=== PATIENT | male | born 1980 | race Hispanic/Latino ===

== ENCOUNTER 2016-11-15 20:13 | Emergency (ER) | payer OTHER ==
[~2016-11-15] VITALS: Ht 162.6 cm; Wt 95.5 kg
[2016-11-15 20:29] VITALS: BP 152/105; PULSE 110; RESP 18; O2SAT 100
[2016-11-15 21:04] LABS: APPEARANCE,URINE CLEAR (CLEAR,HAZY); COLOR,URINE STRAW (YELLOW); PH,URINE 5.5 (5.0-8.0)
[2016-11-15 21:05] LABS: OCCULT BLOOD,URINE TRACE (NEGATIVE); UROBILINOGEN,URINE NORMAL (NORMAL)
[2016-11-15 21:17] LABS: BASOPHILS % (AUTO) 0.2 % (0-3); EOSINOPHILS % (AUTO) 3.2 % (0-5); MONOCYTES % (AUTO) 7.6 % (4-12); Mean Corpuscular Hemoglobin 28.7 pg (27.0-35.0); Mean Corpuscular Volume 84.7 fL (81-100); NEUTROPHILS % (AUTO) 51.7 % (40-74); Platelet Count 270 bil/L (150-400)
[2016-11-15 21:31] LABS: Magnesium 2.3 mg/dL (1.6-2.6)
--- NOTE | 2016-11-15 22:23 | ED.REPORT ---
HPI-General Illness Date of Service Nov 15, 2016 ED Provider: Arnaud Bah MD The patient is a 36 year old male presenting to the ED complaining of fatigue onset 3 days ago. Associated symptoms include nausea, dysuria, non-productive cough, lightheadedness, and shortness of breath. Denied symptoms include vomiting, diarrhea, or chills. He claims that he had been to the clinic twice and got his blood drawn, but the results were normal. He denies giving a urine sample at the clinic. Nursing Notes Stated Complaint: FEEL SICK Chief Complaint: General Complaint Nursing Notes Reviewed: Yes Allergies: Coded Allergies: No Known Allergies (Unverified , 11/15/16) General Time Seen by MD: 22:13 Chief Complaint Not feeling well Hx Obtained From: Patient Arrived By: Walk-in Sudden in Onset?: Yes Onset Occurred: 3 days ago Symptom Duration: Since onset Recent Healthcare: No recent hospitalization, Recent doctor visit Similar Sx Previous: Yes Past Medical History Past Medical History None reported Past Surgical History None reported Smoking History Unknown if Ever Smoker Social History Alcohol Use: "Social" Drug Use: Denies drug use Other Social History: Good social support, Ambulatory Status Independent Review of Systems Full Review of Systems Respiratory: Reports: Non-productive cough, Shortness of breath GI: Reports: Nausea, Denies: Vomiting Male: Reports Dysuria Neurologic: Reports: Lightheaded Complete sys rev & neg: except as marked. Physical Exam Vital Signs Vital Signs Date Time Temp Pulse Resp B/P Pulse Ox O2 Delivery O2 Flow Rate FiO2 11/15/16 20:29 37.3 110 18 152/105 100 Room Air Initial VS: Reviewed, Vital signs abnormal General/Constitutional: Well-developed, Well-nourished Head / Eyes: Atraumatic, Normocephalic Neck: Supple, Non-tender, Full range of motion Respiratory: Breath sounds normal, No respiratory distress Cardiovascular: Regular rate & rhythm, Heart sounds normal Abdomen / GI: Soft, Non-tender Back: No CVA tenderness Lymphatic: No lymphadenopathy Extremities: Vascular intact, Neuro intact Neurologic: Alert, Oriented Psychiatric: Mood/affect normal, Behavior normal ENT: Atraumatic, Mucous membranes moist, Tympanic membs NL Abdomen: Atraumatic, Soft Tenderness/Guarding/Rebound: Positive: Tender suprapubic Skin: Atraumatic, No rash, Warm, Dry Healing abrasion on right forearm Interpretation & Diagnostics Lab Results Interpretation Result Diagram: 11/15/16210111/15/16 210 Test 11/15/16 20:45 11/15/16 21:02 Urine Color Straw (YELLOW) Urine Appearance Clear (CLEAR,HAZY) Urine pH 5.5 (5.0-8.0) Urine Specific [place] 1.005 (1.003-1.035) Urine Protein Negativemg/dL (NEG,TRACE) Urine Glucose (UA) Negativemg/dL (NEGATIVE) Urine Ketones Negativemg/dL (NEGATIVE) Urine Occult Blood Trace (NEGATIVE) Urine Nitrite Negative (NEGATIVE) Urine Bilirubin Negative (NEGATIVE) Urine Urobilinogen Normalmg/dL (NORMAL) Urine Leukocyte Esterase Negative (NEGATIVE) Urine RBC 0-2/hpf (0-2) Urine WBC 0-5/hpf (0-5) Urine Epithelial Cells None/hpf (NONE-MOD) Urine Crystals None seen (NONE SEEN) Urine Bacteria None/hpf (NONE-FEW) Urine Hyaline Casts None/lpf (NONE) Urine Granular Casts None seen (NONE SEEN) Urine Waxy Casts None seen (NONE SEEN) Urine Red Blood Cell Casts None seen (NONE SEEN) Urine White Blood Cell Casts None seen (NONE SEEN) Urine Mucus None seen (None Seen) Urine Trichomonas None seen (NONE SEEN) Urine Yeast None (NONE SEEN) Urinalysis Comment None Urine Culture Reflexed Not indicated White Blood Count 6.2th/mm3 (3.8-10.1) Red Blood Count 5.02mil/mm3 (4.40-5.80) Hemoglobin 14.4g/dL (13.8-17.2) Hematocrit 42.5% (41.0-50.0) Mean Corpuscular Volume 84.7fL (81-100) Mean Corpuscular Hemoglobin 28.7pg (27.0-35.0) Mean Corpuscular Hemoglobin Concent 33.9% (32.0-37.0) Red Cell Distribution Width 13.1% (12.3-15.4) Platelet Count 270bil/L (150-400) Neutrophils (%) (Auto) 51.7% (40-74) Lymphocytes (%) (Auto) 37.0% (14-46) Monocytes (%) (Auto) 7.6% (4-12) Eosinophils (%) (Auto) 3.2% (0-5) Basophils (%) (Auto) 0.2% (0-3) Sodium Level 141mEq/L (134-144) Potassium Level 4.2mEq/L (3.5-5.2) Chloride Level 102mEq/L (97-108) Carbon Dioxide Level 27mmol/L (18-29) Blood Urea Nitrogen 9mg/dL (6-20) Creatinine 0.94mg/dL (0.76-1.27) Estimat Glomerular Filtration Rate 97mL/min (>59) Glucose Level 120mg/dL (60-99) Calcium Level 9.5mg/dL (8.5-10.1) Magnesium Level 2.3mg/dL (1.6-2.6) Total Bilirubin 0.2mg/dL (0.0-1.2) Aspartate Amino Transf (AST/SGOT) 25U/L (0-50) Alanine Aminotransferase (ALT/SGPT) 36U/L (0-44) Alkaline Phosphatase 61U/L (25-150) Total Protein 7.5g/dL (6.4-8.4) Albumin 4.6g/dL (3.4-5.0) Lipase 27U/L (13-60) Hold Rey Top Tube Received (Received) Lab values outside NL range: no clinical significance. Re-Eval/Medical Decision Med Decision/Clinical Course There is no evidence at this time was serious bacterial infection. Labs (blood and urine) are all normal. I think your symptoms are from a virus which is going through the community. Tylenol and/or ibuprofen. Fluids and plenty of sleep. Recheck as needed. Time of Eval: 21:30 Re-Evaluation/Progress Note: Patient rechecked. Discussed lab results and plan for discharge. All questions addressed at this time. Counseled Regarding: Diagnosis, Lab results, Need for follow-up, When/why to return to ED Discharge & Departure Primary Impression: Viral syndrome Disposition: Home Discharge Condition All VS Reviewed: Yes Condition: Stable Patient Instructions: Viral Syndrome (ED) Additional Instructions: There is no evidence at this time was serious bacterial infection. Labs (blood and urine) are all normal. I think your symptoms are from a virus which is going through the community. Tylenol and/or ibuprofen. Fluids and plenty of sleep. Recheck as needed. Referrals: NOPCP (PCP) Scribe Attestation Portions of this note were transcribed by Hiren Duke. I, Dr. Bah personally performed the history, physical exam and medical decision-making; I reviewed and confirmed the accuracy of the information in the transcribed note. Signed by: Fercho Connor, 11/15/2016 Arnaud Bah MD Nov 15, 2016 22:23 Nov 15, 2016 22:27
== END 2016-11-16 00:01 | disposition home or self-care (01) ==
LOC: SED 20:13
DX: B34.9 Viral infection, unspecified (principal); R06.02 Shortness of breath; R42 Dizziness and giddiness; R30.0 Dysuria